=== PATIENT | female | born 1985 | race Caucasian/White ===

== ENCOUNTER 2018-09-23 11:45 | Inpatient (IN) | payer OTHER ==
[~2018-09-23] VITALS: Ht 160 cm; Wt 98.0 kg
[2018-09-23] MEDS ORDERED: PNV11TAB PO (13:23)
[2018-09-23 13:24] VITALS: Ht 160 cm; Wt 98.0 kg
[2018-09-23 13:25] VITALS: BP 131/91; RESP 18
[2018-09-23] MEDS ORDERED: OXYTOCIN 30 UNITS/LR 500 ML IV SCH ×2 (13:30)
[2018-09-23] MEDS ORDERED: LIDOCAINE 1% (MPF) 30 ML INJ INJ PRN (13:30)
[2018-09-23] MEDS ORDERED: MISOPROSTOL 200 MCG TAB PR PRN (13:30)
[2018-09-23] MEDS ORDERED: BUTORPHANOL 2 MG INJ IV PRN ×2 (13:30)
[2018-09-23] MEDS ORDERED: METHYLERGONOVINE 0.2 MG INJ IM PRN (13:30)
[2018-09-23] MEDS ORDERED: CARBOPROST 250 MCG INJ IM PRN (13:30)
[2018-09-23] MEDS ORDERED: OXYTOCIN 30 UNITS/LR 500 ML IV PRN (13:30)
[2018-09-23] MEDS ORDERED: LACTATED RINGER'S 1,000 ML IV SCH (14:00)
--- NOTE | 2018-09-23 14:22 | HP ---
Date/Time of Note Date/Time of Note DATE: 09/23/18 TIME: 14:20 OB - History Hx of Present Free Text/Dictation 33 YO G1 with IUP at 37.4 weeks with EDC 10/12/2018. she is referred from [facility] due to elevated BP. she had BP 158/108 in Triage. needs to be delivered. she is motivated to have vaginal . she denies headache, visual changes or RUQ pain. she denies UC, vaginal bleeding or LOF per vagina. Care: Good Care Ultrasounds: Normal mid trimester US Obstetrical Complications: Gestational Hypertension Medical Complications: None Past Family/Social History * Past Medical, Surgical, Family and Obstetric Histories reviewed from chart. OB Admission Exam Vital Signs Vital Signs Vital Signs Date Temp Pulse Resp B/P (MAP) Pulse Ox O2 O2 Flow FiO2 Time Delivery Rate 09/23/18 98.4 18 131/91 13:25 (104) Physical Exam HEENT: WNL Heart: Rhythm Normal Lungs: Clear, Equal Abdomen: WNL Extremities: Normal Reflexes: Normal OB Assessment/Plan Reason for admission: induction of labor Induction Method: per Misoprostol Protocol MARCUS LÓPEZ MD September 23, 2018 14:22
[2018-09-23] MEDS: LACTATED RINGER'S 1,000 ML IV SCH ×2 (14:45→21:44)
[2018-09-23] MEDS: MISOPROSTOL 50 MCG CAPSULE PO SCH ×2 (15:36→20:03)
[2018-09-24] MEDS: LACTATED RINGER'S 1,000 ML IV SCH ×3 (05:25→21:35)
[2018-09-24] MEDS: MISOPROSTOL 50 MCG CAPSULE PO SCH ×3 (05:35→17:09)
--- NOTE | 2018-09-24 15:42 | PREAC ---
Date/Time of Note Date/Time of Note DATE: 09/24/18 TIME: 15:41 Anesthesia Eval and Record Evaluation Time Pre-Procedure Interview DATE: 09/24/18 TIME: 15:41 Age 33 Sex female NPO: 8 hrs Preoperative diagnosis in labor Planned procedure Labor epidural Past Medical History Past Medical History: Includes GI: Obesity Surgery & Anesthesia Issues No known issue Meds Anticoagulation: No Beta Kristina within 24 hr: No Reason Beta Kristina not given: Pt. not on B-Kristina Reported Medications [id number] ( 19) 1 Each Tablet, 1 TAB PO DAILY, TAB 09/23/18 Current Medications Lactated Ringer's 1,000 ml @ 125 mls/hr Q8H IV Last administered on 09/24/18at 12:42; Admin Dose 125 MLS/HR; Start 09/23/18 at 13:21 Butorphanol Tartrate (Stadol) 1 mg Q2H PRN IV .PAIN SCALE 1-5; Start 09/23/18 at 13:30 Butorphanol Tartrate (Stadol) 2 mg Q2H PRN IV .PAIN SCALE 6-10; Start 09/23/18 at 13:30 Lidocaine (Xylocaine 1% (Mpf)) 30 ml ONCE PRN INJ .EPISIOTOMY; Start 09/23/18 at 13:30 Oxytocin/Lactated Ringer's 500 ml @ 500 mls/hr ONCE POST IV ; Start 09/23/18 at 13:30 Oxytocin/Lactated Ringer's 500 ml @ 125 mls/hr POST IV ; Start 09/23/18 at 13:30 Oxytocin/Lactated Ringer's 500 ml @ 0 mls/hr ONCE PRN IV .VAGINAL BLEEDING; Start 09/23/18 at 13:30 Methylergonovine Maleate (Methergine) 0.2 mg ONCE PRN IM .VAGINAL BLEEDING; Start 09/23/18 at 13:30 Carboprost Tromethamine (Hemabate) 250 mcg ONCE PRN IM .VAGINAL BLEEDING; Start 09/23/18 at 13:30 Misoprostol (Cytotec) 1,000 mcg ONCE PRN ME .VAGINAL BLEEDING; Start 09/23/18 at 13:30 Meds reviewed: Yes Allergies Coded Allergies: No Known Allergy (Unverified , 09/23/18) Allergies Reviewed: Yes Labs/Studies Labs Reviewed: Reviewed by anesthesiologist Result Diagram: 09/24/18 0556 09/24/18 0556 Laboratory Tests 09/24/18 05:56 test: Positive Pre-procedure Exam Last vitals Vital Signs Date Temp Pulse Resp B/P (MAP) Pulse Ox O2 O2 Flow FiO2 Time Delivery Rate 09/23/18 98.4 18 131/91 13:25 (104) Airway: Adequate mouth opening Mallampati: Mallampati II Teeth: Normal Lung: Normal Heart: Normal ASA Physical Status ASA physical status: 2 Emergency: None Planned Anesthetic Neuraxial: Epidural Pre-operative Attestations Prior to commencing anesthesia and surgery, the patient was re-evaluated, there was verification of: *The patient's identity *The results of appropriate recent lab work and preoperative vital signs *The above evaluation not changing prior to induction *Anesthetic plan, risk benefits, alternative and complications discussed with patient/family; questions answered; patient/family understands, accepts and wishes to proceed. NILSA JAQUEZ MD September 24, 2018 15:42
[2018-09-24] MEDS ORDERED: FENTAnyl 2MCG/ML-ROPIV 0.2% 0 ML ONE (15:44)
[2018-09-24] MEDS ORDERED: NALOXONE (0.4 MG/ML) INJ IV PRN (16:00)
[2018-09-24] MEDS ORDERED: DIPHENHYDRAMINE 50 MG INJ IV PRN (16:00)
[2018-09-24] MEDS ORDERED: ONDANSETRON 4 MG INJ IV PRN (16:00)
[2018-09-24] MEDS ORDERED: EPHEDrine 25 MG/5 ML SYG IV PRN (16:00)
[2018-09-24] MEDS ORDERED: OXYTOCIN 30 UNITS/LR 500 ML IV SCH (20:00)
[2018-09-24] MEDS ORDERED: MISOPROSTOL 50 MCG CAPSULE PO ONE (21:30)
[2018-09-25] MEDS: OXYTOCIN 30 UNITS/LR 500 ML IV SCH (04:32)
[2018-09-25] MEDS: LACTATED RINGER'S 1,000 ML IV SCH ×3 (05:26→19:38)
--- NOTE | 2018-09-25 10:55 | QN ---
Documentation Comment NST reactive, reassuring Cervix is long, firm high and one cm s/p 6 doses of Oral Cytotec, now on low dose Pitocin I placed balloon and inflated it to 60 ml MARCUS LÓPEZ MD September 25, 2018 10:55
[2018-09-25] MEDS ORDERED: LABETALOL HCL 20MG INJ IV PRN ×3 (11:30)
[2018-09-25] MEDS ORDERED: hydrALAzine 20 MG INJ IV PRN (11:30)
[2018-09-25] MEDS ORDERED: ONDANSETRON 4 MG INJ ONE (16:29)
--- NOTE | 2018-09-25 16:38 | PREAC ---
Date/Time of Note Date/Time of Note DATE: 09/25/18 TIME: 16:36 Anesthesia Eval and Record Evaluation Time Pre-Procedure Interview DATE: 09/25/18 TIME: 15:32 Age 33 Sex female NPO: 8 hrs Preoperative diagnosis iup @ 37 wks, pih, , labor Planned procedure robbi Past Medical History Past Medical History: Includes Cardio: HTN : : (2), Para: (0), Gestational age: (37 wks.), PIH Surgery & Anesthesia Issues No known issue Meds Anticoagulation: No Beta Kristina within 24 hr: No Reason Beta Kristina not given: Pt. not on B-Kristina Reported Medications [id number] ( 19) 1 Each Tablet, 1 TAB PO DAILY, TAB 09/23/18 Current Medications Lactated Ringer's 1,000 ml @ 125 mls/hr Q8H IV Last administered on 09/25/18at 13:38; Admin Dose 125 MLS/HR; Start 09/23/18 at 13:21 Butorphanol Tartrate (Stadol) 1 mg Q2H PRN IV .PAIN SCALE 1-5; Start 09/23/18 at 13:30 Butorphanol Tartrate (Stadol) 2 mg Q2H PRN IV .PAIN SCALE 6-10 Last administered on 09/25/18at 10:44; Admin Dose 2 MG; Start 09/23/18 at 13:30 Lidocaine (Xylocaine 1% (Mpf)) 30 ml ONCE PRN INJ .EPISIOTOMY; Start 09/23/18 at 13:30 Oxytocin/Lactated Ringer's 500 ml @ 500 mls/hr ONCE POST IV ; Start 09/23/18 at 13:30 Oxytocin/Lactated Ringer's 500 ml @ 125 mls/hr POST IV ; Start 09/23/18 at 13:30 Oxytocin/Lactated Ringer's 500 ml @ 0 mls/hr ONCE PRN IV .VAGINAL BLEEDING; Start 09/23/18 at 13:30 Methylergonovine Maleate (Methergine) 0.2 mg ONCE PRN IM .VAGINAL BLEEDING; Start 09/23/18 at 13:30 Carboprost Tromethamine (Hemabate) 250 mcg ONCE PRN IM .VAGINAL BLEEDING; Start 09/23/18 at 13:30 Misoprostol (Cytotec) 1,000 mcg ONCE PRN GA .VAGINAL BLEEDING; Start 09/23/18 at 13:30 Fentanyl/ Ropivacaine 100 ml EPIDURAL INFUSION EPI ; Start 09/24/18 at 16:00 Ephedrine Sulfate 5 mg [id number] PRN IV BLOOD PRESSURE SUPPORT; Start 09/24/18 at 16:00 Oxytocin/Lactated Ringer's 500 ml @ 0 mls/hr FOR INDUCTION IV Last administered on 09/25/18at 04:32; Admin Dose 2 MLS/HR; Start 09/25/18 at 02:30 Labetalol HCl (Labetalol) 20 mg ONCE PRN IV ELEVATED BLOOD PRESSURE Last administered on 09/25/18at 11:27; Admin Dose 20 MG; Start 09/25/18 at 11:30 Labetalol HCl (Labetalol) 40 mg ONCE PRN IV ELEVATED BLOOD PRESSURE; Start 09/25/18 at 11:30 Labetalol HCl (Labetalol) 80 mg ONCE PRN IV ELEVATED BLOOD PRESSURE; Start 09/25/18 at 11:30 Hydralazine HCl (Apresoline) 10 mg ONCE PRN IV ELEVATED BLOOD PRESSURE; Start 09/25/18 at 11:30 Meds reviewed: Yes Allergies Coded Allergies: No Known Allergy (Unverified , 09/23/18) Allergies Reviewed: Yes Labs/Studies Labs Reviewed: Reviewed by anesthesiologist Result Diagram: 09/24/18 0556 09/24/18 0556 test: Positive Studies: ECG (n/a), CXR (n/a) Pre-procedure Exam Last vitals Vital Signs Date Temp Pulse Resp B/P (MAP) Pulse Ox O2 O2 Flow FiO2 Time Delivery Rate 09/23/18 98.4 18 131/91 13:25 (104) Airway: Adequate mouth opening, Adequate thyromental dist Mallampati: Mallampati II Teeth: Normal Lung: Normal Heart: Normal ASA Physical Status ASA physical status: 3 Emergency: E Planned Anesthetic Neuraxial: Epidural Planned Pain Management Epidural, Local by surgeon Pre-operative Attestations Prior to commencing anesthesia and surgery, the patient was re-evaluated, there was verification of: *The patient's identity *The results of appropriate recent lab work and preoperative vital signs *The above evaluation not changing prior to induction *Anesthetic plan, risk benefits, alternative and complications discussed with patient/family; questions answered; patient/family understands, accepts and wishes to proceed. Bias Cutter Helper used NATALIIA HART MD September 25, 2018 16:38
[2018-09-25] MEDS ORDERED: ONDANSETRON 4 MG INJ IV PRN (17:00)
[2018-09-25] MEDS ORDERED: NALOXONE (0.4 MG/ML) INJ IV PRN (17:00)
[2018-09-25] MEDS ORDERED: FENTAnyl 2MCG/ML-ROPIV 0.2% 100 ML BAG EPI SCH (17:00)
[2018-09-25] MEDS ORDERED: SCOPOLAMINE 1.5 MG PATCH TRANSDERM PRN (17:30)
[2018-09-25] MEDS ORDERED: METOCLOPRAMIDE 10 MG INJ IV PRN (17:30)
[2018-09-26] MEDS ORDERED: ACETAMINOPHEN 325 MG TAB PO ONE (00:30)
[2018-09-26] MEDS: FENTAnyl 2MCG/ML-ROPIV 0.2% 100 ML BAG EPI SCH ×3 (01:58→21:38)
[2018-09-26] MEDS: LACTATED RINGER'S 1,000 ML IV SCH ×3 (02:49→16:15)
[2018-09-26] MEDS: OXYTOCIN 30 UNITS/LR 500 ML IV SCH (08:34)
--- NOTE | 2018-09-26 09:25 | QN ---
Documentation Comment NST is reassuring cervix is 2.5 cm 70 -3. vertex is ballotable so I do not feel comfortable with AROM will restart Pitocin MARCUS LÓPEZ MD September 26, 2018 09:25
[2018-09-27] MEDS: LACTATED RINGER'S 1,000 ML IV SCH ×4 (00:56→23:57)
[2018-09-27] MEDS ORDERED: ACETAMINOPHEN 325 MG TAB PO PRN (04:30)
[2018-09-27] MEDS: FENTAnyl 2MCG/ML-ROPIV 0.2% 100 ML BAG EPI SCH (06:08)
[2018-09-27] MEDS ORDERED: AZITHROMYCIN 500MG/NS (PMX) 250 ML IV SCH (06:30)
[2018-09-27] MEDS ORDERED: CEFAZOLIN 2 GM/50 ML (PMX) 50 ML IVPB ONE (06:30)
[2018-09-27] MEDS ORDERED: ONDANSETRON 4 MG INJ IV STA (06:32)
[2018-09-27] MEDS ORDERED: CITRIC ACID/NA CITRATE 30 ML CUP PO ONE (07:00)
--- NOTE | 2018-09-27 07:03 | PREAC ---
Date/Time of Note Date/Time of Note DATE: 09/27/18 TIME: 07:02 Anesthesia Eval and Record Evaluation Time Pre-Procedure Interview DATE: 09/27/18 TIME: 07:02 Age 33 Sex female NPO: 8 hrs Preoperative diagnosis Fever, and tachycardia Planned procedure Past Medical History Past Medical History: Includes Heme: Anemia : : (2), Para: (0), Gestational age: (38) Surgery & Anesthesia Issues No known issue Meds Anticoagulation: No Beta Kristina within 24 hr: No Reason Beta Kristina not given: Pt. not on B-Kristina Reported Medications [id number] ( ) 1 Each Tablet, 1 TAB PO DAILY, TAB 09/23/18 Current Medications Butorphanol Tartrate (Stadol) 1 mg Q2H PRN IV .PAIN SCALE 1-5; Start 09/23/18 at 13:30 Butorphanol Tartrate (Stadol) 2 mg Q2H PRN IV .PAIN SCALE 6-10 Last administered on 09/25/18at 10:44; Admin Dose 2 MG; Start 09/23/18 at 13:30 Lidocaine (Xylocaine 1% (Mpf)) 30 ml ONCE PRN INJ .EPISIOTOMY; Start 09/23/18 at 13:30 Oxytocin/Lactated Ringer's 500 ml @ 500 mls/hr ONCE POST IV ; Start 09/23/18 at 13:30 Oxytocin/Lactated Ringer's 500 ml @ 125 mls/hr POST IV ; Start 09/23/18 at 13:30 Oxytocin/Lactated Ringer's 500 ml @ 0 mls/hr ONCE PRN IV .VAGINAL BLEEDING; Start 09/23/18 at 13:30 Methylergonovine Maleate (Methergine) 0.2 mg ONCE PRN IM .VAGINAL BLEEDING; Start 09/23/18 at 13:30 Carboprost Tromethamine (Hemabate) 250 mcg ONCE PRN IM .VAGINAL BLEEDING; Start 09/23/18 at 13:30 Misoprostol (Cytotec) 1,000 mcg ONCE PRN IN .VAGINAL BLEEDING; Start 09/23/18 at 13:30 Fentanyl/ Ropivacaine 100 ml EPIDURAL INFUSION EPI Last administered on 09/27/18at 06:08; Admin Dose 100 ML; Start 09/24/18 at 16:00 Ephedrine Sulfate 5 mg [id number] PRN IV BLOOD PRESSURE SUPPORT; Start 09/24/18 at 16:00 Oxytocin/Lactated Ringer's 500 ml @ 0 mls/hr FOR INDUCTION IV Last administered on 09/26/18 08:34; Admin Dose 2 MLS/HR; Start 09/25/18 at 02:30 Labetalol HCl (Labetalol) 20 mg ONCE PRN IV ELEVATED BLOOD PRESSURE Last administered on 09/25/18 11:27; Admin Dose 20 MG; Start 09/25/18 at 11:30 Labetalol HCl (Labetalol) 40 mg ONCE PRN IV ELEVATED BLOOD PRESSURE; Start 09/25/18 at 11:30 Labetalol HCl (Labetalol) 80 mg ONCE PRN IV ELEVATED BLOOD PRESSURE; Start 09/25/18 at 11:30 Hydralazine HCl (Apresoline) 10 mg ONCE PRN IV ELEVATED BLOOD PRESSURE; Start 09/25/18 at 11:30 Fentanyl/ Ropivacaine 100 ml EPIDURAL INFUSION EPI ; Start 09/25/18 at 17:00 Scopolamine (Transderm-Scop) 1 patch Q72H PRN TRANSDERM PRN SECRETIONS Last administered on 09/25/18 17:52; Admin Dose 1 PATCH; Start 09/25/18 at 17:30 Metoclopramide HCl (Reglan) 10 mg Q6H PRN IV NAUSEA Last administered on 09/25/18 17:52; Admin Dose 10 MG; Start 09/25/18 at 17:30 Lactated Ringer's 1,000 ml @ 125 mls/hr Q8H IV Last administered on 09/27/18 06:52; Admin Dose 125 MLS/HR; Start 09/26/18 at 15:00 Acetaminophen (Tylenol Tab) 650 mg Q6H PRN PO MILD PAIN(1-3)OR ELEVATED TEMP Last administered on 09/27/18 04:29; Admin Dose 650 MG; Start 09/27/18 at 04:30 Azithromycin 250 ml @ 250 mls/hr ONCE IV Last administered on 09/27/18 06:52; Admin Dose 250 MLS/HR; Start 09/27/18 at 06:30 Meds reviewed: Yes Allergies Coded Allergies: codeine (Verified Allergy, Mild, GI Upset, 09/25/18) Allergies Reviewed: Yes Labs/Studies Labs Reviewed: Reviewed by anesthesiologist Result Diagram: 09/24/18 0556 09/24/18 0556 test: Positive Studies: ECG (n/a), CXR (n/a) Pre-procedure Exam Last vitals Vital Signs Date Temp Pulse Resp B/P (MAP) Pulse Ox O2 O2 Flow FiO2 Time Delivery Rate 09/27/18 100.6 05:14 09/23/18 18 131/91 13:25 (104) Airway: Adequate mouth opening, Adequate thyromental dist Mallampati: Mallampati II Teeth: Normal Lung: Normal Heart: Normal ASA Physical Status ASA physical status: 2 Emergency: E Planned Anesthetic Neuraxial: Epidural Planned Pain Management Epidural Pre-operative Attestations Prior to commencing anesthesia and surgery, the patient was re-evaluated, there was verification of: *The patient's identity *The results of appropriate recent lab work and preoperative vital signs *The above evaluation not changing prior to induction *Anesthetic plan, risk benefits, alternative and complications discussed with patient/family; questions answered; patient/family understands, accepts and wishes to proceed. DIANE LOPEZ MD September 27, 2018 07:03
[2018-09-27] MEDS ORDERED: OXYTOCIN 10 UNIT INJ ONE (07:33)
[2018-09-27] MEDS ORDERED: MIDAZOLAM 1 MG/ML 2 ML INJ ONE (07:36)
[2018-09-27] MEDS ORDERED: OXYTOCIN 30 UNITS/LR 500 ML IV ONE (07:38)
[2018-09-27] MEDS ORDERED: EPINEPHrine 1 MG INJ ONE (07:39)
[2018-09-27] MEDS ORDERED: morphine SULFATE/PF (10 MG/10 ML) INJ ONE (07:39)
[2018-09-27] MEDS ORDERED: FENTAnyl 50 MCG/ML VIAL ONE (07:42)
--- NOTE | 2018-09-27 08:07 | PAC ---
Date/Time of Note Date/Time of Note DATE: 09/27/18 TIME: 08:06 Post-Anesthesia Notes Post-Anesthesia Note Last documented vital signs Vital Signs Date Temp Pulse Resp B/P (MAP) Pulse Ox O2 O2 Flow FiO2 Time Delivery Rate 09/27/18 100.6 05:14 09/23/18 18 131/91 13:25 (104) Activity: WNL Respiratory function: WNL Cardiovascular function: WNL Mental status: Baseline Pain reasonably controlled: Yes Hydration appropriate: Yes Nausea/Vomiting absent: Yes NATALIIA HART MD September 27, 2018 08:07
[2018-09-27] MEDS ORDERED: FENTAnyl 50 MCG/ML VIAL IV PRN ×2 (08:30)
[2018-09-27] MEDS ORDERED: ONDANSETRON 4 MG INJ IV PRN ×2 (08:30)
[2018-09-27] MEDS ORDERED: IPRATROPIUM (NEB) 0.5 MG/2.5 ML AMP HHN PRN (08:30)
[2018-09-27] MEDS ORDERED: HYDROmorphONE 0.5 MG/0.5 ML SYG IV PRN ×2 (08:30)
[2018-09-27] MEDS ORDERED: LEVALBUTEROL (NEB) 1.25 MG/0.5 ML AMP HHN PRN (08:30)
[2018-09-27] MEDS ORDERED: LABETALOL HCL 20MG INJ IV PRN (08:30)
[2018-09-27] MEDS ORDERED: KETOROLAC 30 MG INJ IV PRN (08:30)
[2018-09-27] MEDS ORDERED: ZOLPIDEM 5 MG TAB PO PRN (08:30)
[2018-09-27] MEDS ORDERED: DIPHENHYDRAMINE 50 MG INJ IV PRN ×2 (08:30)
[2018-09-27] MEDS ORDERED: hydrALAzine 20 MG INJ IV PRN (08:30)
[2018-09-27] MEDS ORDERED: MIDAZOLAM 1 MG/ML 2 ML INJ IV PRN (08:30)
[2018-09-27] MEDS ORDERED: NALOXONE (0.4 MG/ML) INJ IV PRN ×2 (08:30)
[2018-09-27] MEDS ORDERED: HYDROmorphONE 1 MG/5 ML IV SYRINGE IV PRN ×3 (08:30)
--- NOTE | 2018-09-27 08:53 | HP ---
Date/Time of Note Date/Time of Note DATE: 09/27/18 TIME: 08:51 OB - History Hx of Present Free Text/Dictation 33 YO G1 with IUP at 37.4 weeks with EDC 10/12/2018. she is referred from [facility] due to elevated BP. she had BP 158/108 in Triage. needs to be delivered. she is motivated to have vaginal . she denies headache, visual changes or RUQ pain. she denies UC, vaginal bleeding or LOF per vagina. she underwent IOL initially with 6 doses of oral Cytotec and then Balloon and then Pitocin. she developed failure to progress at 4 cm and Chorioamnionitis. needs to be delivered via . I discussed with the patient the risks, benefits, indications, and alternatives of procedure including but not limited to risks of infection, bleeding, damage to other organs, bowel, bladder, hernia formation, scar formation, possibility of blood transfusion, possible need for emergency hysterectomy. She was allowed to ask questions. All her questions were answered. Informed consent has been obtained. Care: Good Care Ultrasounds: Normal mid trimester US Obstetrical Complications: Pre-eclampsia Medical Complications: None Past Family/Social History * Past Medical, Surgical, Family and Obstetric Histories reviewed from chart. OB Admission Exam Vital Signs Vital Signs Vital Signs Date Temp Pulse Resp B/P (MAP) Pulse Ox O2 O2 Flow FiO2 Time Delivery Rate 09/27/18 100.6 05:14 09/23/18 18 131/91 13:25 (104) Physical Exam HEENT: WNL Heart: Rhythm Normal Lungs: Clear, Equal Abdomen: WNL Extremities: Normal Reflexes: Normal Cervical Dilatation: 4cm OB Assessment/Plan Other Assessment: IUP at 38 weeks Chorioamnionitis Preeclampsia Failure to progress Plan: Section MARCUS LÓPEZ MD September 27, 2018 08:53
[2018-09-27] MEDS ORDERED: LACTATED RINGER'S 1,000 ML IV SCH (08:56)
--- NOTE | 2018-09-27 08:56 | OPR ---
Date/Time of Note Date/Time of Note DATE: 09/27/18 TIME: 08:53 Operative Report Procedure Date: September 27, 2018 Preoperative Diagnosis IUP at 38 weeks Chorioamnionitis Preeclampsia failure to progress Postoperative Diagnosis same Operation/Procedure Performed Primary Low Transverse delivery Surgeon David Muhammad MD General Dentist Dr. Macdonald Anesthesia Type: spinal, epidural Estimated Blood Loss: other (700 ml) Transfusion none Specimen Placenta Grafts/Implants none Tubes/Drains Novoa Cath Complications none Pt Condition Post Procedure: stable Disposition: PACU Procedure Description The risks, benefits, indications, alternatives of procedure including, but not limited to risk of infection, bleeding, damage to other organs, bowel, bladder, hernia formation, scar formation, possibility of blood transfusions discussed with patient. She was allowed to ask questions. All her questions were answered. Informed consent was obtained. DESCRIPTION OF PROCEDURE: She was taken to the operating room. Spinal anesthesia was induced. She was prepped and draped in the usual sterile fashion. Surgical time out one. Anesthesia was tested to be adequate. With permission from anesthesiologist, a knife was used to make a Pfannenstiel skin incision. The incision was taken down in layers. The fascia was cut, undermined and from the underlying muscle using sharp and blunt dissection. All the bleeders were cauterized. Peritoneum was entered bluntly. A low transverse incision was developed over the uterus. Amniotic fluid was clear and adequate. A viable in vertex presentation was delivered without any difficulty. The cord was clamped and cut, handed to awaiting team. Placenta was then delivered. Uterus was exteriorized, wrapped around a moist lap. Inside uterus was cleaned using a dry lap. All residual membranes were removed. The uterine incision was then closed using #1 Monocryl in 2 layers. The uterus was inserted back inside the abdominal cavity. Irrigation was done carefully. Careful evaluation of the uterine incision revealed no further bleeding. The peritoneum and rectus muscles and fascia were evaluated. All bleeders cauterized. Peritoneum was closed using 2-0 Monocryl. At this time, the count was correct. Rectus muscle was reapproximated using 2-0 Monocryl. Rectus fascia was closed using #1 Vicryl. Subcutaneous tissue was cleaned and irrigated. All bleeders cauterized and the skin closed using Insorb. All counts correct. DAVID MUHAMMAD MD September 27, 2018 08:56
[2018-09-27] MEDS ORDERED: LANOLIN HPA 1 PKT TOP PRN (09:00)
[2018-09-27] MEDS ORDERED: NA PHOSPHATE/BIPHOS 133 ML ENEMA PR PRN (09:00)
[2018-09-27] MEDS ORDERED: MISOPROSTOL 200 MCG TAB PR PRN (09:00)
[2018-09-27] MEDS ORDERED: LABETALOL 200 MG TAB PO PRN (09:00)
[2018-09-27] MEDS: SENNA/DOCUSATE NA (8.6MG/50MG) TAB PO SCH ×2 (09:00→21:00)
[2018-09-27] MEDS ORDERED: PIPER-TAZO 3.375 GM IV (PMX) 100 ML IVPB SCH (10:00)
[2018-09-27 15:00] VITALS: BP 142/88; PULSE 105; RESP 18
[2018-09-27 15:30] VITALS: BP 136/89; PULSE 106; RESP 20
[2018-09-27 16:00] VITALS: BP 146/89; PULSE 111; RESP 18
--- NOTE | 2018-09-27 16:42 | PAC ---
Date/Time of Note Date/Time of Note DATE: 09/27/18 TIME: 16:42 Post-Anesthesia Notes Post-Anesthesia Note Last documented vital signs Vital Signs Date Temp Pulse Resp B/P (MAP) Pulse Ox O2 O2 Flow FiO2 Time Delivery Rate 09/27/18 111 18 146/89 98 Room Air 16:00 (108) 09/27/18 101.1 15:00 Activity: WNL Respiratory function: WNL Cardiovascular function: WNL Mental status: Baseline Pain reasonably controlled: Yes Hydration appropriate: Yes Nausea/Vomiting absent: Yes JAGUAR CABALLERO MD September 27, 2018 16:42
[2018-09-27 17:33] VITALS: BP 111/58; PULSE 100; RESP 18
[2018-09-27] MEDS: PIPER-TAZO 3.375 GM IV (PMX) 100 ML IVPB SCH (17:35)
[2018-09-27] MEDS: KETOROLAC 30 MG INJ IV PRN (19:55)
[2018-09-27 20:00] VITALS: BP 119/71; PULSE 112; RESP 19
[2018-09-27] MEDS: NIFEdipine (XL) 60 MG TAB PO SCH (21:00)
[2018-09-28 00:05] VITALS: BP 130/75; PULSE 105; RESP 19
[2018-09-28] MEDS: PIPER-TAZO 3.375 GM IV (PMX) 100 ML IVPB SCH ×3 (02:03→17:37)
[2018-09-28] MEDS: KETOROLAC 30 MG INJ IV PRN (03:47)
[2018-09-28 04:00] VITALS: BP 126/79; PULSE 103; RESP 19
[2018-09-28] MEDS: LACTATED RINGER'S 1,000 ML IV SCH ×3 (07:00→23:00)
[2018-09-28 07:45] VITALS: BP 132/75; PULSE 97; RESP 16
--- NOTE | 2018-09-28 07:48 | QN ---
Documentation Comment s/p c/s Subjective: no complaint Objective: Afebrile, VSS NAD A&O Abdomen: soft, appropriate tender Incision: no sign of bleeding/infection mild lochia Extremity: 1+ edema bilaterally Assessment: S/p C/S POD # 1 Chorioamnionitis, on Zosyn Recovering Well Plan: current care MARCUS LÓPEZ MD September 28, 2018 07:48
[2018-09-28] MEDS: NIFEdipine (XL) 60 MG TAB PO SCH ×2 (09:18→21:41)
[2018-09-28] MEDS: SENNA/DOCUSATE NA (8.6MG/50MG) TAB PO SCH ×2 (09:19→21:42)
[2018-09-28] MEDS: OXYCODONE/ACETAMINOPHEN (5/325) TAB PO PRN ×2 (09:19→16:10)
[2018-09-28] MEDS: IBUPROFEN 600 MG TAB PO SCH ×2 (12:00→17:37)
[2018-09-28 16:00] VITALS: BP 115/70; PULSE 95; RESP 16
[2018-09-28 20:00] VITALS: BP 123/74; PULSE 102; RESP 20
[2018-09-29] MEDS: IBUPROFEN 600 MG TAB PO SCH ×5 (00:07→23:42)
[2018-09-29] MEDS: OXYCODONE/ACETAMINOPHEN (5/325) TAB PO PRN ×3 (01:59→15:44)
[2018-09-29] MEDS: PIPER-TAZO 3.375 GM IV (PMX) 100 ML IVPB SCH ×3 (02:01→18:02)
[2018-09-29 04:00] VITALS: BP 126/80; PULSE 96; RESP 16
[2018-09-29 08:30] VITALS: BP 120/72; PULSE 83; RESP 19
--- NOTE | 2018-09-29 09:26 | DS ---
Date/Time of Note Date/Time of Note DATE: 09/29/18 TIME: 09: Obstetrical Discharge Record Final Diagnosis Final Diagnosis: Term delivered Other Final Diagnosis she was admitted for IOL due to preeclampsia. developed Chorioamnionitis and failure to progress. s/p C/s. BPs controlled on Procardia XL 60 mg BID. she has Rx to Continue with Procardia XL 60 mg BID and [place] prn # 30. was treated with Zosyn and remained Afebrile > 48 hours Section Section: Primary Primary Indication failure to progress Complications Preg induced Hypertension Augmentation: No Induction: No Rupture of Membranes: No Condition on Discharge Physical Assessment Voiding: Yes Bowel Movement: Yes Breast: Soft, non-tender, Filling Fundus: Firm Abdomen and Incision: soft, appropriate tender. no sign of infection on the incision Calf Tenderness: No Patient Condition: Good MARCUS LÓPEZ MD September 29, 2018 09:26
[2018-09-29] MEDS: NIFEdipine (XL) 60 MG TAB PO SCH ×2 (09:45→22:12)
[2018-09-29] MEDS: SENNA/DOCUSATE NA (8.6MG/50MG) TAB PO SCH ×2 (09:47→21:00)
[2018-09-29 17:16] VITALS: BP 130/79; PULSE 97; RESP 18
[2018-09-29 20:00] VITALS: BP 135/88; PULSE 102; RESP 20
[2018-09-30] MEDS: PIPER-TAZO 3.375 GM IV (PMX) 100 ML IVPB SCH ×2 (00:21→10:00)
[2018-09-30 04:04] VITALS: BP 139/83; PULSE 101; RESP 20
[2018-09-30] MEDS: IBUPROFEN 600 MG TAB PO SCH ×2 (06:23→12:28)
[2018-09-30] MEDS: SENNA/DOCUSATE NA (8.6MG/50MG) TAB PO SCH (08:38)
[2018-09-30] MEDS: OXYCODONE/ACETAMINOPHEN (5/325) TAB PO PRN (08:39)
[2018-09-30 08:40] VITALS: BP 143/84; PULSE 90; RESP 18
[2018-09-30] MEDS ORDERED: DIPHTH/TET/ACEL PERTUSS (ADULT) 0.5 ML VIAL IM* ONE (09:00)
[2018-09-30] MEDS ORDERED: MEASLES,MUMPS,RUBELLA VACCINE INJ SC* ONE (09:00)
[2018-09-30] MEDS: NIFEdipine (XL) 60 MG TAB PO SCH (09:52)
--- NOTE | 2018-10-01 19:08 | DELSUM ---
Delivery Summary A-C Datetime Report Generated by CPN: 10/01/2018 19:07 DELIVERY PERSONNEL Foreclosure Paralegal: Umair Sharmaebe MATERNAL INFORMATION Delivery Anesthesia: Epidural Medications in Delivery: see Anesthesia Flowsheet Delivery QBL (ml): 600 Placenta Cultured: Yes Maternal Complications: Maternal Fever RN Comments: [place]ER[place] RN ORT LABOR SUMMARY EDC: 10/10/2018 00:00 No. Babies in Womb: 1 Attempted: No Labor Anesthesia: Epidural LABOR INFORMATION Reason for Induction: Gest. HTN/PreEclam/Eclamp Onset of Labor: 09/23/2018 14:00 Cervical Ripening Agents: Ripening Balloon; Cytotec @ Oxytocin: Induction Group B Beta Strep: Negative Antibiotics # of Doses: 2 Antibiotics Time of Last Dose: 09/27/2018 07:00 Steroids Given: None Reason Steroids Not Administered: Not Applicable MEMBRANES Membranes Rupture Method: Artificial Rupture of Membranes: 09/26/2018 22:11 Length of Rupture (hr): 9.35 Amniotic Fluid Color: Clear Amniotic Fluid Amount: Moderate Amniotic Fluid Odor: Normal STAGES OF LABOR Stage 3 hr: -3 Stage 3 min: -23 Total Time in Labor hr: 86 Total Time in Labor min: 9 VAGINAL DELIVERY Episiotomy: None CSECTION DELIVERY Primary Indication: MATERNAL FEVER CSection Urgency: Emergency CSection Incidence: Primary Labor: Labor Elective: Nonelective CSection Incision: Lower Uterine Transverse BABY A INFORMATION Infant Delivery Date/Time: 09/27/2018 07:32 Method of Delivery: Born in Route : No : N/A Forceps: N/A Vacuum Extraction: N/A Shoulder Dystocia : N/A SHOULDER DYSTOCIA BABY A Infant Delivery Date/Time: 09/27/2018 07:32 PRESENTATION/POSITION BABY A Presentation: Cephalic Cephalic Presentation: Vertex Vertex Position: Left Occipital Anterior Breech Presentation: N/A PLACENTA INFORMATION BABY A Placenta Delivery Time : 09/27/2018 04:09 Placenta Method of Delivery: Manual Removal Placenta Status: Delivered SCORES BABY A Heart Rate 1 min: >100 bpm Resp Effort 1 min: Good Cry Reflex Irritability 1 min: Cough/Sneeze/Pulls Away Muscle Tone 1 min: Active Motion Color 1 min: Body [place], Extremit Blue Resuscitation Effort 1 min: Tactile Stimulation SCORE 1 MIN: 9 Heart Rate 5 min: >100 bpm Resp Effort 5 min: Good Cry Reflex Irritability 5 min: Cough/Sneeze/Pulls Away Muscle Tone 5 min: Active Motion Color 5 min: Body Ridott, Extremit Blue Resuscitation Effort 5 min: Tactile Stimulation SCORE 5 MIN: 9 INFORMATION BABY A Gestational Age at Delivery: 37.4 Gestational Status: Early Term- 37- 38.6 Weeks Infant Outcome : Liveborn Infant Condition : Stable Sex: Male IDENTIFICATION/MEDS BABY A ID Band Number: [id number] ID Band Location: Right Leg; Left Arm Sensor Applied: Yes Sensor Number: [id number] Sensor Location : Cord Clamp Erythromycin Given: Not Given WEIGHT/LENGTH BABY A Birthweight (gm): 3235 Weight (lb): 7 Weight (oz): 2 Length (in): 20.25 Length (cm): 51.44 CORD INFORMATION BABY A No. Cord Vessels: 3 Nuchal Cord : N/A Nuchal Cord- Other: 0 True Knot: 0 Infant Cord pH Baby Arterial: 7.30 Cord Blood Taken: Yes Banking/Donate Info: no Infant Suction: Mouth; Nose ASSESSMENT BABY A Physical Findings at Delivery: Within Normal Limits Respirations: Appears Normal Infant Care By: Adi SHARMA RNC Transferred To: Remains with Mother
== END 2018-09-30 19:07 | disposition home or self-care (01) | DRG 786 ==
LOC: OBT 11:45 → L-D 11:46 → OBT 13:25 → L-D 09-27 07:14 → PP1 09-27 15:01
PROVIDERS: ADMIT Specialist; ATTEND Specialist
PROC: 10D00Z1 Extraction of Products of Conception, Low, Open Approach (ICD-10-PCS; principal; 2018-09-27 07:30)
DX: O13.4 Gestational [pregnancy-induced] hypertension without significant proteinuria, complicating childbirth (principal); O41.1230 Chorioamnionitis, third trimester, not applicable or unspecified; O14.94 Unspecified pre-eclampsia, complicating childbirth; O62.0 Primary inadequate contractions; Z3A.38 38 weeks gestation of pregnancy; Z37.0 Single live birth
CPT/HCPCS: 36600; 62322; 76815; 80053; 81003; 82803; 84560; 85025; 85384; 85610; 85730; 86592; 86850; 86900; 86901; 87070; 88307; 99464; G0463; J0171; J0456; J0595; J0690; J1170; J1885; J2250; J2274; J2405; J2543; J2590; J2765; J3010; J7120